=== PATIENT | male | born 1965 | race Two or more races ===

== ENCOUNTER 2023-11-27 15:39 | Emergency (ER) | payer OTHER ==
[~2023-11-27] VITALS: Ht 188 cm; Wt 95.3 kg
[2023-11-27 15:41] VITALS: BP 90/57; PULSE 91; RESP 16; TEMP 98.2; O2SAT 98
[2023-11-27 16:45] LABS: BASOPHILS % (AUTO) 0.8 % (0.0-2.0); EOSINOPHILS # (AUTO) 0.1 K/uL (0-0.4); EOSINOPHILS % (AUTO) 3.2 % (0.0-4.0); HEMATOCRIT 44.6 % (36-52); HEMOGLOBIN 15.2 g/dL (12.0-18.0); LYMPHOCYTES # (AUTO) 1.6 K/uL (2.0-11.5); LYMPHOCYTES % (AUTO) 46.5 % (20.5-51.1); MEAN CORPUSCULAR HEMOGLOBIN 30 pg (27-31); MEAN CORPUSCULAR HGB CONC 34 g/dL (33-37); MEAN CORPUSCULAR VOLUME 87.1 fL (80-94); MONOCYTES # (AUTO) 0.3 K/uL (0.8-1.0); NEUTROPHILS # (AUTO) 1.4 K/uL (1.8-7.7); NEUTROPHILS % (AUTO) 41.5 % (42.2-75.2); PLATELET COUNT (AUTO) 269 K/uL (140-450); RED BLOOD CELL COUNT(AUTO) 5.12 MIL/uL (4.20-6.10); RED CELL DISTRIBUTION WIDTH 13.5 % (11.6-13.7); WHITE BLOOD COUNT (AUTO) 3.3 K/uL (4.8-10.8)
[2023-11-27 17:04] LABS: ANION GAP 15.3 (8-16); CALCIUM 9.5 mg/dL (8.5-10.1); CARBON DIOXIDE 28.2 mmol/L (21-32); CREATININE 1.4 mg/dL (0.6-1.3); POTASSIUM 5.5 mmol/L (3.5-5.1)
[2023-11-27 17:11] LABS: CREATINE KINASE, TOTAL 53 U/L (39-308); MAGNESIUM 1.9 mg/dL (1.8-2.4); PHOSPHORUS 4.7 mg/dL (2.5-4.9)
[2023-11-27] MEDS: NACL 0.9% 1,000 ML IV ONE (17:56)
[2023-11-27] MEDS ORDERED: HYDROcodone/APAP 5/325 MG 1 TAB TAB PO ONE (19:55)
[2023-11-27] MEDS: ACETAMINOPHEN 325 MG TAB PO ONE (20:07)
[2023-11-27 20:25] VITALS: BP 97/61; PULSE 92; RESP 10; TEMP 98.2; O2SAT 99
== END 2023-11-27 20:29 | disposition left against medical advice (07) ==
LOC: MED 15:39
DX: R07.89 Other chest pain (principal); R51.9 Headache, unspecified; E11.65 Type 2 diabetes mellitus with hyperglycemia; E87.5 Hyperkalemia; E87.20 Acidosis, unspecified; N17.9 Acute kidney failure, unspecified; I10 Essential (primary) hypertension; E78.5 Hyperlipidemia, unspecified; I25.10 Atherosclerotic heart disease of native coronary artery without angina pectoris; Z86.73 Personal history of transient ischemic attack (TIA), and cerebral infarction without residual deficits; Z86.79 Personal history of other diseases of the circulatory system; Z95.1 Presence of aortocoronary bypass graft
CPT/HCPCS: 36415; 70450; 71250; 80048; 82550; 83605; 83735; 83880; 84100; 84484; 85025; 93005; 96360; 99284; J7030; 96361